=== PATIENT | female | born 1955 | race Caucasian/White ===

== ENCOUNTER → 2017-10-28 | Outpatient (CLI) | payer OTHER ==
--- NOTE | 2017-10-28 14:45 | CT ---
EXAMINATION TYPE: CT shoulder RT wo con DATE OF EXAM: 10/28/2017 COMPARISON: NONE HISTORY: Osteoarthritis, pre op CT DLP: 385 mGycm Automated exposure control for dose reduction was used. Helical acquisition through the right shoulde r. Three-dimensional, sagittal and coronal reconstructions performed on an alternate workstation. FINDINGS: There is marginal spurring at the glenohumeral joint with joint space loss, remodeling. Pseudocysts p resent within the humeral head. Alignment is maintained. Bone mineralization is normal. Incidental note made of emphysematous changes in the right upper lobe. IMPRESSION: OSTEOARTHRITIS.
== END | disposition home or self-care (01) ==
LOC: RADCTMAIN 12:08
PROVIDERS: ATTEND Family Medicine
DX: M19.011 Primary osteoarthritis, right shoulder (principal)

== ENCOUNTER → 2018-06-25 | Outpatient (CLI) | payer OTHER ==
--- NOTE | 2018-06-26 16:30 | CT ---
EXAMINATION TYPE: CT abdomen pelvis w con DATE OF EXAM: 06/25/2018 COMPARISON: None INDICATION: diverticulitis DLP: 1899.2 mGycm, Automated exposure control for dose reduction was used. CONTRAST: 100 mL of Isovue 300. Study performed with Oral Contrast TECHNIQUE: Axial images were obtained from above the diaphragm to the pubic rami in the axial plane a t 5 mm thick sections. Reconstructed images are reviewed on the computer in the coronal plane. FINDINGS: Limited CT sections are obtained the lung bases. Mild compressive atelectasis in the posterior right lung base.. CT ABDOMEN: There is an anterior abdominal wall hernia at the periumbilical region. The opening is 2. 4 cm and contains mesenteric fat. No loops of bowel are involved Liver: Normal Spleen: Normal Pancreas: Normal Adrenal glands: The adrenal glands are normal. Gallbladder: Surgically absent Kidneys: No masses are evident. No hydronephrosis is present. No cysts are present. Delayed images were obtained through the kidneys, which remain unremarkable. Aorta: Vascular calcification is within the aorta. Inferior vena cava: Normal. CT PELVIS: Loops of bowel within the abdomen and pelvis are normal. There are loops of bowel which are incom pletely distended or lack oral contrast limiting their evaluation. Diverticular changes are present t hrough the sigmoid colon Appendix: Normal. No suspicious tubular structures or inflammatory changes are evident. Urinary bladder: Normal. Genitourinary structures: Uterus is absent. Adnexal regions are clear. Osseous structures: No suspicious lytic or sclerotic lesions. Sacroiliac joint vacuum phenomenon is p resent. Some facet degenerative changes in the lower lumbar spine. IMPRESSIONS: 1. erticulosis without acute diverticulitis 2. Periumbilical hernia containing mesenteric fat..
== END | disposition home or self-care (01) ==
LOC: RADCTMAIN 15:33
PROVIDERS: ATTEND Family Medicine
DX: K57.30 Diverticulosis of large intestine without perforation or abscess without bleeding (principal); K42.9 Umbilical hernia without obstruction or gangrene
CPT/HCPCS: 74177; Q9967

== ENCOUNTER → 2019-01-19 | Outpatient (CLI) | payer OTHER ==
[2019-01-19 13:09] LABS: Basophils # (A) 0.1 k/uL (0-0.2); Basophils % (A) 1 %; Eosinophils # (A) 0.3 k/uL (0-0.7); Eosinophils % (A) 3 %; HCT 44.6 % (34.0-46.0); HGB 14.8 gm/dL (11.4-16.0); Lymphocytes # (A) 1.9 k/uL (1.0-4.8); Lymphocytes % (A) 20 %; MCH 30.9 pg (25.0-35.0); MCHC 33.2 g/dL (31.0-37.0); MCV 93.1 fL (80.0-100.0); Mean Platelet Volume 7.1; Monocytes # (A) 0.4 k/uL (0-1.0); Monocytes % (A) 4 %; Neutrophils # (A) 6.6 k/uL (1.3-7.7); Neutrophils % (A) 71 %; Platelet Count 298 k/uL (150-450); RDW 12.7 % (11.5-15.5); WBC 9.4 k/uL (3.8-10.6)
== END | disposition home or self-care (01) ==
LOC: LABPAT 11:18
PROVIDERS: ATTEND Surgery
DX: Z01.812 Encounter for preprocedural laboratory examination (principal); Z01.818 Encounter for other preprocedural examination; K43.0 Incisional hernia with obstruction, without gangrene
CPT/HCPCS: 36415; 85025; 93005

== ENCOUNTER 2019-01-24 08:58 | Observation (INO) | payer OTHER ==
[~2019-01-24 08:58] MED LIST: DEXAMETHASONE SOD PHOSPHATE 10 MG/ML 1 ML VIAL IV ONE; HEPARIN SODIUM,PORCINE 5,000 UNIT/ML 1 ML VIAL SQ ONE; HYDROmorphone 0.5 MG/0.5 ML SYRINGE IVP PRN; MIDAZOLAM 2 MG/2 ML VIAL IV PRN; ONDANSETRON 4 MG/2 ML VIAL IVP ONE; SCOPOLAMINE 1.5MG/72HR PATCH TRANSDERM ONE
[2019-01-24] MEDS: LACTATED RINGERS 1,000 ML IV SCH (10:17)
[2019-01-24] MEDS ORDERED: fentaNYL (PF) 50 MCG/ML 2 ML AMP IV ONE (10:27)
--- NOTE | 2019-01-24 10:41 | P.GSHP ---
History of Present Illness H&P Date: 01/24/19 Chief Complaint: Recurrent incisional hernia This is a 63-year-old female referred from Dr. Guzmán. Patient presents today for repair of recurrent incisional hernia. Patient is developed a tender mass just below her umbilicus. She has any recurrent incisional hernia measured prostate 5 cm in diameter. Past Medical History Past Medical History: Fibromyalgia, GERD/Reflux, Hyperlipidemia, Osteoarthritis (OA) Additional Past Medical History / Comment(s): palpitations, varicose veins, hiatal hernia, hypoglycemia, History of Any Multi-Drug Resistant Organisms: None Reported Past Surgical History: Section, Cholecystectomy, Hernia Repair, Hysterectomy Past Anesthesia/Blood Transfusion Reactions: No Reported Reaction Smoking Status: Current every day smoker - Past Family History Mother Family Medical History: No Reported History Medications and Allergies Home Medications Medication Instructions Recorded Confirmed Type Aspirin [Adult Low Dose Aspirin EC] 81 mg PO DAILY 01/18/19 01/18/19 History Docusate [Colace] 100 mg PO HS 01/18/19 01/24/19 History Hydrocodone/Acetaminophen [[place] 1 tab PO TID 01/18/19 01/24/19 History 10-325] LORazepam [Ativan] 1 mg PO BID 01/18/19 01/24/19 History Ranitidine HCl [Zantac] 150 mg PO BID 01/18/19 01/24/19 History Rosuvastatin Calcium [Crestor] 5 mg PO HS 01/18/19 01/24/19 History Allergies Allergy/AdvReac Type Severity Reaction Status Date / Time No Known Allergies Allergy Verified 01/24/19 10:07 Surgical - Exam Vital Signs Pulse Resp BP Pulse Ox 67 16 128/82 96 01/24/19 10:06 01/24/19 10:06 01/24/19 10:06 01/24/19 10:06 - General well developed, well nourished, no distress - Eyes PERRL - ENT normal pinna - Neck no masses - Respiratory normal expansion - Cardiovascular Rhythm: regular - Abdomen Abdomen: soft, non tender Hernia: incisional (5 cm infraumbilical incisional hernia) Assessment and Plan Assessment: Recurrent incisional hernia. We'll perform open repair.
[2019-01-24] MEDS ORDERED: ROCURONIUM BROMIDE 10 MG/ML 10 ML VIAL IV ONE (10:49)
[2019-01-24] MEDS ORDERED: fentaNYL (PF) 50 MCG/ML 2 ML AMP ONE (10:49)
[2019-01-24] MEDS ORDERED: PROPOFOL 10 MG/ML 20 ML VIAL IV ONE (10:49)
[2019-01-24] MEDS ORDERED: LIDOCAINE 1% INJ 10MG/ML (20 ML MDV) ONE (10:49)
[2019-01-24] MEDS ORDERED: KETOROLAC 30 MG/ML 1 ML VIAL ONE (10:49)
[2019-01-24] MEDS ORDERED: .MORPHINE SULFATE (INJ) 10 MG/ML SYRINGE ONE (10:49)
[2019-01-24] MEDS ORDERED: GLYCOPYRROLATE 0.2 MG/ML 2 ML VIAL ONE (10:49)
[2019-01-24] MEDS ORDERED: NEOSTIGMINE 1 MG/ML 10 ML VIAL ONE (10:49)
[2019-01-24] MEDS ORDERED: SUCCINYLCHOLINE CHLORIDE 100 MG/5 ML SYR IV ONE (10:49)
[2019-01-24] MEDS ORDERED: MIDAZOLAM 2 MG/2 ML VIAL ONE (10:49)
[2019-01-24] MEDS ORDERED: LACTATED RINGERS 1,000 ML IV ONE ×2 (11:39→11:41)
[2019-01-24] MEDS ORDERED: ONDANSETRON 4 MG/2 ML VIAL IVP PRN (11:41)
[2019-01-24] MEDS ORDERED: NALOXONE 0.4 MG/ML 1 ML VIAL IV PRN (11:41)
--- NOTE | 2019-01-24 11:55 | P.OP ---
Date of Procedure: 01/24/19 Preoperative Diagnosis: Recurrent incisional hernia Postoperative Diagnosis: Recurrent incisional hernia Procedure(s) Performed: (Pair of recurrent incisional hernia with mesh Anesthesia: EUGENE Surgeon: Travis Neri Estimated Blood Loss (ml): 10 Pathology: other (Hernia sac) Condition: stable Disposition: PACU Description of Procedure: The patient's placed on the arm table in the supine position. She received general anesthesia. Her abdomen was prepped and draped usual sterile fashion. The patient a previous low midline incision. The hernias located near the umbilicus. The skin was incised in midline. And then using blunt and sharp dissection with cautery the hernia sac was dissected free from the fascia. The hernia sac was dissected and sent to pathology. The fascial defect was then closed using. 0 Ethibond suture. A 6 x 6 Prolene mesh was placed over top the repair and secured the circumflex her strap tacker. A TAMI drains placed through separate stab incision and then Citlaly's fascia was closed with 0 Vicryl suture skin was closed ana. Patient top she will was sent to recovery in stable condition.
[2019-01-24] MEDS: HYDROmorphone 0.5 MG/0.5 ML SYRINGE IVP PRN ×3 (11:59→20:47)
[2019-01-24] MEDS: MEPERIDINE 50 MG/ML SYRINGE IVP ONE ×2 (12:09→12:18)
[2019-01-24] MEDS ORDERED: LORazepam 1 MG TAB PO PRN (13:27)
[2019-01-24 14:53] VITALS: BMI 26.9
[2019-01-24] MEDS: KETOROLAC 30 MG/ML 1 ML VIAL IVP SCH ×2 (20:11→20:16)
[2019-01-24] MEDS: ATORVASTATIN 10 MG TAB PO SCH (20:48)
[2019-01-24] MEDS: DOCUSATE 100 MG CAP PO SCH (20:48)
[2019-01-25] MEDS: KETOROLAC 30 MG/ML 1 ML VIAL IVP SCH ×4 (01:03→18:48)
[2019-01-25] MEDS: HYDROmorphone 0.5 MG/0.5 ML SYRINGE IVP PRN ×3 (02:20→22:51)
[2019-01-25] MEDS: LACTATED RINGERS 1,000 ML IV SCH ×2 (04:54→16:56)
[2019-01-25 07:27] LABS: Basophils % (A) 0 %; Eosinophils # (A) 0.2 k/uL (0-0.7); Eosinophils % (A) 2 %; HCT 37.4 % (34.0-46.0); HGB 12.7 gm/dL (11.4-16.0); Lymphocytes % (A) 15 %; MCH 31.4 pg (25.0-35.0); MCHC 33.9 g/dL (31.0-37.0); MCV 92.7 fL (80.0-100.0); Mean Platelet Volume 7.3; Monocytes # (A) 0.7 k/uL (0-1.0); Monocytes % (A) 5 %; Neutrophils # (A) 10.4 k/uL (1.3-7.7); Neutrophils % (A) 77 %; Platelet Count 256 k/uL (150-450); RBC 4.03 m/uL (3.80-5.40); RDW 12.7 % (11.5-15.5); WBC 13.5 k/uL (3.8-10.6)
[2019-01-25 07:40] LABS: African American GFR (CKD) >90 (>60 ml/min/1.73 sqM); Anion Gap 8 mmol/L; Blood Urea Nitrogen 14 mg/dL (7-17); Carbon Dioxide 26 mmol/L (22-30); Chloride 104 mmol/L (98-107); Glucose 117 mg/dL (74-99); Potassium 3.7 mmol/L (3.5-5.1); Sodium 138 mmol/L (137-145)
[2019-01-25] MEDS ORDERED: DOCUSATE 100 MG CAP PO SCH (09:00)
[2019-01-25] MEDS: ENOXAPARIN 40 MG/0.4 ML SYRINGE SQ SCH (09:04)
[2019-01-25] MEDS: HYDROcodone/APAP 5-325MG 1 EACH TAB PO PRN (11:24)
--- NOTE | 2019-01-25 12:35 | P.PN ---
Subjective Progress Note Date: 01/25/19 CHIEF COMPLAINT: incisional hernia HISTORY OF PRESENT ILLNESS: patient is status post repair of incisional hernia. Postop day #1. Patient examined this morning at the bedside. Patient reports her pain is tolerable. Tolerating diet. denies nausea or vomiting. She reports she was ambulating in the hallway this morning. Voiding without difficulty. TAMI drain with serosanguineous drainage. WBC 13.5. Vital signs stable, BP slightly on the lower side this morning. She has been afebrile. PHYSICAL EXAM: VITAL SIGNS: Reviewed. GENERAL: Well-developed in no acute distress. HEENT: No sclera icterus. Extraocular movements grossly intact. Moist buccal mucosa. Head is atraumatic, normocephalic. ABDOMEN: Soft. Nondistended. Appropriate surgical tenderness. TAMI drain with serosanguineous drainage. Abdominal binder present. NEUROLOGIC: Alert and oriented. Cranial nerves II through XII grossly intact. ASSESSMENT: 1. Status post repair of incisional hernia PLAN: 1. Continue diet as tolerated 2. Increase activity as tolerated. Patient encouraged to be OOB and ambulatory today 3. Pain control. Continue home dose of [place]. Avoid IV Dilaudid if pain is controlled with [place] 4. Patient states she is unable to be discharged home today and does not feel ready. Will hold DC today per Dr. Neri. Will discharge home tomorrow morning. Nurse practitioner note has been reviewed by physician. Signing provider agrees with the documented findings, assessment, and plan of care. Objective - Vital Signs Vital signs: Vital Signs Temp 98.5 F 01/25/19 08:49 Pulse 61 01/25/19 08:49 Resp 20 01/25/19 08:49 BP 99/65 01/25/19 08:49 Pulse Ox 94 L 01/25/19 08:49 Intake & Output 01/24/19 01/25/19 01/25/19 18:59 06:59 18:59 Intake Total 1110 Output Total 10 25 Balance 1100 -25 Intake: IV 1050 Oral 60 Output: Drainage 25 Upper Abdomen 25 Estimated Blood Loss 10 Other: # Voids 1 - Labs CBC & Chem 7: 01/25/19 06:59 01/25/19 06:59 Labs: Abnormal Lab Results - Last 24 Hours (Table) 09/10/19 09/10/19 Range/Units 06:59 06:59 WBC 13.5 H (3.8-10.6) k/uL Neutrophils # 10.4 H (1.3-7.7) k/uL Glucose 117 H (74-99) mg/dL
[2019-01-25] MEDS: DOCUSATE 100 MG CAP PO SCH (21:20)
[2019-01-25] MEDS: ATORVASTATIN 10 MG TAB PO SCH (21:20)
--- NOTE | 2019-01-25 23:35 | P.CONS ---
History of Present Illness - Reason for Consult Consult date: 01/25/19 - History of Present Illness This is a 63-year-old white female who was admitted after undergoing elective abdominal hernia surgery. She is currently postop in no acute distress with some minimal pain. She just received her first diet is tolerating okay. Her home medications were resumed and she is currently on medications for pain control. I've been asked to consult and participate regarding medical management. Review of Systems GENERAL: Patient denies fever. Denies chills. EYES: Denies blurred vision. Denies vision changes. Denies eye pain. EARS, NOSE, MOUTH, & THROAT: Denies headache. Denies sore throat. Denies ear pain. RESPIRATORY: Denies cough. Denies shortness of breath. Denies sputum production. Denies hemoptysis. CARDIOVASCULAR: Denies chest pain or pressure. Denies palpitations. Denies arrhythmias. GASTROINTESTINAL: Denies abdominal pain. Denies diarrhea. Denies constipation. Denies nausea. Denies vomiting. Denies heartburn. Denies blood in the stool. GENITOURINARY: Denies urinary frequency. Denies burning. Denies dysuria. Denies cloudy urine. Denies blood in the urine. MUSCULOSKELETAL: Denies myalgias. Denies joint swelling. Denies decreased range of motion beyond patients baseline. INTEGUMENTARY: Denies pruitis. Denies rash. PSYCHIATRIC: Denies suicidal or homicial ideations. ENDOCRINE: Denies weight change. Denies polydipsia. Denies polyuria. HEMATOLOGIC: Denies bleeding disorders. Past Medical History Past Medical History: Fibromyalgia, GERD/Reflux, Hyperlipidemia, Osteoarthritis (OA) Additional Past Medical History / Comment(s): palpitations, varicose veins, hiatal hernia, hypoglycemia, History of Any Multi-Drug Resistant Organisms: None Reported Past Surgical History: Section, Cholecystectomy, Hernia Repair, Hysterectomy Past Anesthesia/Blood Transfusion Reactions: No Reported Reaction Past Psychological History: Anxiety, Depression, Panic Disorder Smoking Status: Current every day smoker Past Alcohol Use History: None Reported Additional Past Alcohol Use History / Comment(s): smokes 1 1/2 PPD, has smoked for over 31 yrs Past Drug Use History: None Reported - Past Family History Mother Family Medical History: No Reported History Medications and Allergies Home Medications Medication Instructions Recorded Confirmed Type Aspirin [Adult Low Dose Aspirin EC] 81 mg PO DAILY 01/18/19 01/24/19 History Docusate [Colace] 100 mg PO HS 01/18/19 01/24/19 History Hydrocodone/Acetaminophen [[place] 1 tab PO TID 01/18/19 01/24/19 History 10-325] LORazepam [Ativan] 1 mg PO BID 01/18/19 01/24/19 History Ranitidine HCl [Zantac] 150 mg PO BID 01/18/19 01/24/19 History Rosuvastatin Calcium [Crestor] 5 mg PO HS 01/18/19 01/24/19 History Allergies Allergy/AdvReac Type Severity Reaction Status Date / Time No Known Allergies Allergy Verified 01/24/19 23:27 Physical Exam Osteopathic Statement: *. No significant issues noted on an osteopathic structural exam other than those noted in the History and Physical/Consult. Vitals: Vital Signs Temp Pulse Resp BP Pulse Ox 01/25/19 20:02 98.2 F 64 20 137/85 96 01/25/19 17:50 95 01/25/19 15:53 99.0 F 65 20 114/75 94 L 01/25/19 12:43 98.3 F 63 20 114/73 96 01/25/19 08:49 98.5 F 61 20 99/65 94 L 01/25/19 04:40 98.4 F 57 L 16 100/63 94 L 01/25/19 01:07 98.2 F 62 18 113/73 95 Intake and Output 01/25/19 01/25/19 01/26/19 14:59 22:59 06:59 Output Total 20 Balance -20 Output: Drainage 20 Upper Abdomen 20 Other: # Voids 1 1 GENERAL: This is a -63 year-old in no apparent distress at the time of examination. Pleasant and cooperative. HEENT: Head is atraumatic, normocephalic. Pupils are equal, round, and reactive to light. Sclerae anicteric. Conjunctivae are clear. Mucus membranes of the mouth are moist. Neck is supple. RESPIRATORY: Clear to auscultation. No wheezes, rales, or rhonchi. No use of accessory muscles. Patient maintaining oxygen saturation greater than 92%. No chest wall tenderness is noted on palpation or with deep breathing. CARDIOVASCULAR: Regular rate and rhythm. S1 and S2 noted. No systolic or diastolic murmur auscultated. No JVD noted. No S3 or S4 noted. GASTROINTESTINAL: Abdomen soft and round. Normal active bowel sounds auscultated x 4 quadrants. Positive tenderness noted upon palpation. INTEGUMENTARY: No cyanosis. No jaundice. No rashes noted. No cellulitis noted. EXTREMITIES: 2+ peripheral pulses. No evidence of peripheral edema. No calf tenderness noted. NEUROLOGIC: Cranial nerves II-XII intact. PSYCHIATRIC: Awake, alert, and oriented X 3. Appropriate affect. Intact judgement and insight. Results CBC & Chem 7: 01/25/19 06:59 01/25/19 06:59 Labs: Abnormal Lab Results - Last 24 Hours (Table) 01/25/19 01/25/19 Range/Units 06:59 06:59 WBC 13.5 H (3.8-10.6) k/uL Neutrophils # 10.4 H (1.3-7.7) k/uL Glucose 117 H (74-99) mg/dL Assessment and Plan (1) Abdominal hernia Current Visit: Yes Status: Acute Code(s): K46.9 - UNSPECIFIED ABDOMINAL HERNIA WITHOUT OBSTRUCTION OR GANGRENE SNOMED Code(s): 41367168 (2) Anxiety disorder Current Visit: Yes Status: Acute Code(s): F41.9 - ANXIETY DISORDER, UNSPECIFIED SNOMED Code(s): 348303164 (3) Post-operative nausea and vomiting Current Visit: Yes Status: Acute Code(s): R11.2 - NAUSEA WITH VOMITING, UNSPECIFIED; Z98.890 - OTHER SPECIFIED POSTPROCEDURAL STATES SNOMED Code(s): 1633246 Plan: Postop care advance diet as tolerated and early ambulation. Continue pain control conservatively as this patient has had problems with opiate use in the past. Continue patient's overall guarded prognosis.
[2019-01-26] MEDS: KETOROLAC 30 MG/ML 1 ML VIAL IVP SCH ×2 (00:45→05:46)
[2019-01-26] MEDS: HYDROmorphone 0.5 MG/0.5 ML SYRINGE IVP PRN (02:03)
[2019-01-26 08:35] VITALS: RESP 17
[2019-01-26] MEDS: ENOXAPARIN 40 MG/0.4 ML SYRINGE SQ SCH (09:32)
[2019-01-26] MEDS: HYDROcodone/APAP 5-325MG 1 EACH TAB PO PRN (10:00)
--- NOTE | 2019-01-26 10:37 | P.DS ---
Providers Date of admission: 01/24/19 20:38 Expected date of discharge: 01/26/19 Attending physician: Travis Neri Consults: 01/24/19 11:41 Consult Physician Routine Consulting Provider: Parveen Guzmán Reason/Comments: Medical management Do you want consulting provider notified?: Yes Primary care physician: Parveen Guzmán Hospital Course: 63 year old female who is status post repair of incisional hernia. Patient is doing well postoperatively without any immediate complications. Patient is tolerating diet. Denies nausea or vomiting. Vital signs have been stable. She is stable for discharge home today per Dr. Neri. Please see EMR for further hospital course details. It is noted the patient is not prescribed narcotics at discharge as she is prescribed [place] on an outpatient basis from a painter hand. Discharge Diagnosis: 1. Status post repair of incisional hernia Nurse practitioner note has been reviewed by physician. Signing provider agrees with the documented findings, assessment, and plan of care. Patient Condition at Discharge: Stable Plan - Discharge Summary Discharge Rx Participant: No New Discharge Prescriptions: Continue Rosuvastatin Calcium [Crestor] 5 mg PO HS Ranitidine HCl [Zantac] 150 mg PO BID Docusate [Colace] 100 mg PO HS LORazepam [Ativan] 1 mg PO BID Hydrocodone/Acetaminophen [[place] 10-325] 1 tab PO TID Aspirin [Adult Low Dose Aspirin EC] 81 mg PO DAILY Discharge Medication List Aspirin [Adult Low Dose Aspirin EC] 81 mg PO DAILY 01/18/19 [History] Docusate [Colace] 100 mg PO HS 01/18/19 [History] Hydrocodone/Acetaminophen [[place] 10-325] 1 tab PO TID 01/18/19 [History] LORazepam [Ativan] 1 mg PO BID 01/18/19 [History] Ranitidine HCl [Zantac] 150 mg PO BID 01/18/19 [History] Rosuvastatin Calcium [Crestor] 5 mg PO HS 01/18/19 [History] Follow up Appointment(s)/Referral(s): Travis Neri MD [STAFF PHYSICIAN] - 02/01/19 2:10 pm Activity/Diet/Wound Care/Special Instructions: No driving while taking [place] No lifting over 10 pounds You may shower. No soaking or tub baths Very light activity until you are reevaluated at your follow up appointment with your surgeon
[2019-01-26 13:29] VITALS: BP 120/72; PULSE 56; TEMP 98.3
== END 2019-01-26 14:21 | disposition home or self-care (01) ==
LOC: OR 08:58 → 6PED 12:00 → OR 20:36 → 6PED 20:36 → OR 20:38 → 6PED 22:21 → OR 22:21
PROVIDERS: ADMIT Surgery; ATTEND Surgery
DX: K43.2 Incisional hernia without obstruction or gangrene (principal); M79.7 Fibromyalgia; K21.9 Gastro-esophageal reflux disease without esophagitis; E78.2 Mixed hyperlipidemia; E78.00 Pure hypercholesterolemia, unspecified; M19.90 Unspecified osteoarthritis, unspecified site; R00.2 Palpitations; F32.9 Major depressive disorder, single episode, unspecified; F41.0 Panic disorder [episodic paroxysmal anxiety]; F17.210 Nicotine dependence, cigarettes, uncomplicated; Z90.49 Acquired absence of other specified parts of digestive tract; Z79.82 Long term (current) use of aspirin; Z79.899 Other long term (current) drug therapy; Z79.891 Long term (current) use of opiate analgesic; Z82.49 Family history of ischemic heart disease and other diseases of the circulatory system
CPT/HCPCS: 80048; 85025; 88302; 49565; 49568; G0378 ×3; C1781; J2250; J1644; J1100; J2710; J2175; J2270; J0690; J2405; J2001; J1650 ×2; J3010; J1885 ×3; J0330; J2704; J1170 ×3

== ENCOUNTER → 2023-04-01 | Outpatient (CLI) | payer MEDICARE, OTHER ==
--- NOTE | 2023-04-01 11:05 | MM ---
Reason for Exam: Clinical finding. Last mammogram was performed 1 year(s) and 7 month(s) ago. Indicated Problems: Lump or thickening of the right side (size 4mm) for 1 Month(s). Patient History: Menarche at age 13. First Full-Term at age 20. Hysterectomy at age 56. Postmenopausal. Patient has history of breast feeding. Paternal aunt (E) had breast cancer. Risk Values: Emily 5 year model risk: 1.2%. NCI Lifetime model risk: 4.4%. Tissue Density: There are scattered fibroglandular densities. Findings: Analyzed By CAD. No significant change compared to the patient's outside 09/13/2021 prior exam. Overall Assessment: Negative, BI-RAD 1 Management: Screening Mammogram of both breasts in 1 year. If there is any recurrent palpable area, the patient can return for ultrasound. Results were given to the patient verbally at the time of exam. Patient should continue monthly self-breast exams. A clinical breast exam by your physician is recommended on an annual basis. This exam should not preclude additional follow-up of suspicious palpable abnormalities. Note on Emily scores and lifetime risk: 1. A Emily score greater than 3% is considered moderate risk. If this is the case, consider specialist referral to assess eligibility for a risk reducing agent. 2. If overall lifetime risk for the development of breast cancer is 20% or higher, the patient may qualify for future screening with alternating mammogram and breast MRI. Electronically signed and approved by: George Bangura M.D. Radiologist
== END | disposition home or self-care (01) ==
LOC: RADMAMWWP 09:45
PROVIDERS: ATTEND Family Medicine
DX: N63.10 Unspecified lump in the right breast, unspecified quadrant (principal); R92.323 Mammographic fibroglandular density, bilateral breasts; Z78.0 Asymptomatic menopausal state; Z80.3 Family history of malignant neoplasm of breast
CPT/HCPCS: 77066; G0279; 77062

== ENCOUNTER → 2023-11-12 | Outpatient (CLI) | payer MEDICARE, OTHER | END | disposition home or self-care (01) | LOC: LABWHC1 12:19 | PROVIDERS: ATTEND Family Medicine | DX: E61.2 Magnesium deficiency (principal) | CPT/HCPCS: 36415; 83735 ==

== ENCOUNTER → 2023-11-25 | Outpatient (CLI) | payer MEDICARE, OTHER | END | disposition home or self-care (01) | LOC: RADCTMAIN 11:48 | PROVIDERS: ATTEND Family Medicine | DX: Z53.9 Procedure and treatment not carried out, unspecified reason (principal) ==